=== PATIENT | female | born 1970 | race Asian ===

== ENCOUNTER 2024-04-19 09:10 | Day surgery (SDC) | payer MEDICAID, OTHER ==
[~2024-04-19] VITALS: Ht 162.6 cm; Wt 68.9 kg
[2024-04-19] MEDS ORDERED: MEPERIDINE 100 MG INJ. 100 MG/ML VIAL ONE (10:13)
[2024-04-19] MEDS ORDERED: MIDAZOLAM HCL 5 MG/5 ML VIAL ONE (10:14)
[2024-04-19 10:50] LABS: HCG,QUAL RESULT NEGATIVE (NEGATIVE)
[2024-04-19 15:48] VITALS: O2SAT 100
[2024-04-19 16:26] VITALS: BP_SYST 97; PULSE 61; RESP 18
== END 2024-04-19 12:25 | disposition home or self-care (01) ==
LOC: SDS 09:10 → SMU 09:11 → SDS 12:25
PROVIDERS: ATTEND Internal Medicine Gastroenterology
DX: Z12.11 Encounter for screening for malignant neoplasm of colon (principal); D12.8 Benign neoplasm of rectum; K63.89 Other specified diseases of intestine; K57.30 Diverticulosis of large intestine without perforation or abscess without bleeding; K64.8 Other hemorrhoids; F41.9 Anxiety disorder, unspecified; E03.9 Hypothyroidism, unspecified; F17.210 Nicotine dependence, cigarettes, uncomplicated; Z79.890 Hormone replacement therapy
CPT/HCPCS: 45380; 45385; 99152; 84703; 88305; 99153; G0378; J2250; J2175; 45382; 45384